=== PATIENT | female | born 2000 | race Caucasian/White ===

== ENCOUNTER 2023-07-10 07:00 | Outpatient (CLI) | payer BC ==
--- NOTE | 2023-07-10 17:57 | XRAY Report ---
PROCEDURE: Cervical Spine 2-3V INDICATIONS: MUSCLE SPASM OF NECK TECHNIQUE: 3 view(s) of the cervical spine were acquired. COMPARISON: None. FINDINGS: Bones: No fractures or dislocations to the C7-T1 level. The lateral masses of C1 appear intact on t he odontoid view. No suspicious bony lesions. Soft tissues: No prevertebral soft tissue swelling. IMPRESSION: No displaced fracture or traumatic subluxation. Reviewed by: Barb Marion MD on 07/10/2023 5:56 PM [facility] Approved by: Barb Marion MD on 07/10/2023 5:56 PM [facility] Station ID: [id number]
== END 2023-07-10 23:59 | disposition home or self-care (01) ==
LOC: DI.S 07:00
PROVIDERS: ATTEND Physician Assistant
DX: M62.838 Other muscle spasm (principal)